=== PATIENT | female | born 1960 ===

== ENCOUNTER → 2021-01-31 | Outpatient (CLI) | payer OTHER ==
[2021-02-05 15:12] LABS: CHLAMYDIA BY NAA Negative (Negative); GONOCOCCUS BY NAA Negative (Negative); HPV 16 Negative (Negative); HPV 18 Negative (Negative); HPV OTHER HR TYPES Negative (Negative); TRICH VAG BY NAA Negative (Negative)
== END ==
LOC: LAB 18:16 → LAB SHORT 18:16
PROVIDERS: Nurse Practitioner Family
DX: Z01.419 Encounter for gynecological examination (general) (routine) without abnormal findings (principal)
CPT/HCPCS: 87491; 87591; 87624; 87661; G0123

== ENCOUNTER 2024-09-06 07:41 | Day surgery (SDC) | payer OTHER ==
[~2024-09-06] VITALS: Ht 154.9 cm; Wt 68.8 kg
[~2024-09-06 07:41] MED LIST: FISH OIL 1,0001 EAC9
[2024-09-06] MEDS ORDERED: propofoL 50 ML IV ONE (07:47)
[2024-09-06] MEDS ORDERED: Lactated Ringer's 1,000 ML IV ONE ×2 (07:47→08:46)
[2024-09-06] MEDS ORDERED: OLME5TAB (08:09)
[2024-09-06] MEDS ORDERED: ePHEDrine Sulfate 50 MG/ML 1ML Injection ONE (09:32)
[2024-09-06 09:56] VITALS: BP 135/63
== END 2024-09-06 09:57 | disposition home or self-care (01) ==
LOC: ORSCSDS 07:41
PROVIDERS: Internal Medicine Gastroenterology
PROC: 0DJD8ZZ Inspection of Lower Intestinal Tract, Via Natural or Artificial Opening Endoscopic (ICD-10-PCS; principal; 2024-09-06 09:15)
DX: Z12.11 Encounter for screening for malignant neoplasm of colon (principal); Z86.0101 Personal history of adenomatous and serrated colon polyps; I10 Essential (primary) hypertension; Z79.899 Other long term (current) drug therapy
CPT/HCPCS: J2704; J7120